=== PATIENT | male | born 1975 | race Two or more races ===

== ENCOUNTER 2021-03-20 19:39 | Emergency (ER) | payer SELFPAY ==
[~2021-03-20] VITALS: Ht 162.6 cm; Wt 81.6 kg
[2021-03-20 19:40] VITALS: BP_SYST 148
[2021-03-20 20:35] VITALS: BP_SYST 148
== END 2021-03-20 20:35 ==
LOC: SED 19:39
DX: T14.8XXA Other injury of unspecified body region, initial encounter (principal); Y35.811A Legal intervention involving manhandling, law enforcement official injured, initial encounter; Y93.89 Activity, other specified; Y92.89 Other specified places as the place of occurrence of the external cause; Y99.8 Other external cause status
CPT/HCPCS: 71045; 93005; 99283